=== PATIENT | male | born 1970 | race Caucasian/White ===

== ENCOUNTER 2019-08-22 14:28 | Emergency (ER) | payer OTHER, BC ==
[~2019-08-22] VITALS: Ht 182.9 cm; Wt 151.9 kg
[2019-08-22] MEDS ORDERED: LOSARTAN POTASS50 M1 PO (14:46)
[2019-08-22] MEDS ORDERED: METFORMIN HCL500 M2 PO (14:47)
[2019-08-22] MEDS ORDERED: GLIMEPIRIDE4 MG PO (14:47)
[2019-08-22] MEDS ORDERED: Norco 5-325 Ta1 EACH PO (16:37)
[2019-08-22] MEDS ORDERED: Robaxin-750750 MG PO (16:37)
[2019-08-22] MEDS ORDERED: Keflex500 MG PO (16:37)
== END 2019-08-22 17:32 | disposition home or self-care (01) ==
LOC: ER 14:28
DX: S50.312A Abrasion of left elbow, initial encounter (principal); S50.311A Abrasion of right elbow, initial encounter; S80.212A Abrasion, left knee, initial encounter; S80.211A Abrasion, right knee, initial encounter; M25.512 Pain in left shoulder; V29.9XXA Motorcycle rider (driver) (passenger) injured in unspecified traffic accident, initial encounter; Z88.0 Allergy status to penicillin; Z88.5 Allergy status to narcotic agent; Z79.84 Long term (current) use of oral hypoglycemic drugs; Z79.899 Other long term (current) drug therapy; E11.9 Type 2 diabetes mellitus without complications
CPT/HCPCS: 73030; 90471; 90714; 96374; 99283-25; A9270-GY; J1885